=== PATIENT | male | born 1980 | race Caucasian/White ===

== ENCOUNTER 2020-10-31 22:45 | Emergency (ER) | payer MEDICAID, SELFPAY ==
--- NOTE | ~2020-10-31 | XR_ITS ---
EXAMINATION: RIGHT HAND 3 VIEWS CLINICAL INFORMATION: Pain following injury. COMPARISON: None. TECHNIQUE: PA, lateral, oblique views of the right hand were obtained. FINDINGS: There is an oblique fracture to the distal right third middle phalanx with associated soft tissue swelling. No additional acute fractures are identified. There is a likely old healed fracture to the distal metacarpal. XR/XR hand RT min 3V IMPRESSION: Distal right third middle phalanx fracture with associated soft tissue swelling.
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
[2020-10-31 22:55] VITALS: BP 147/75; PULSE 104; PULSE 114; RESP 16; TEMP 36.9; O2SAT 99; BMI 29.2
--- NOTE | 2020-10-31 23:10 | PC.NURSE ---
vs- spO2 100% RA, p 100
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
== END 2020-11-01 01:06 ==
PROVIDERS: Emergency Provider Internal Medicine
DX: S01.01XA Laceration without foreign body of scalp, initial encounter (principal); S62.91XA Unspecified fracture of right hand, initial encounter for closed fracture; G44.309 Post-traumatic headache, unspecified, not intractable; M54.2 Cervicalgia; M79.641 Pain in right hand; F10.920 Alcohol use, unspecified with intoxication, uncomplicated; Y04.2XXA Assault by strike against or bumped into by another person, initial encounter; Y93.9 Activity, unspecified; Y92.9 Unspecified place or not applicable; Y99.9 Unspecified external cause status; Z79.899 Other long term (current) drug therapy
CPT/HCPCS: 12002; 70450; 72125; 73130; 99283

== ENCOUNTER 2020-11-01 10:00 | Emergency (ER) | payer MEDICAID, SELFPAY ==
[2020-11-01 10:15] VITALS: BP 141/96; PULSE 84; RESP 16; TEMP 36.3; O2SAT 100; BMI 26.6
[2020-11-01 10:24] VITALS: BP 139/87; PULSE 80; O2SAT 99
--- NOTE | 2020-11-01 10:37 | PC.NURSE ---
PT REQUESTS TO GO TO [facility] RN EXPLAINED HE WOULD HAVE TO WAIT UNTIL HE WAS DISCHARGED, PT THEN REALIZED HE DID NOT GET HIS BELONGINGS BACK FROM [employer] DEPT BECAME INCREASINGLY UPSET SAID I AM GOING TO GET MY MONEY, SEAM CHECKER PABLITO AWARE, PT LEFT DEPT WEARING SOFT SPLINT APPLIED TO RUE BY EMS
--- NOTE | 2020-11-30 06:41 | ED.EXTPRO ---
HPI - Extremity Problem General Chief complaint: Extremity Injury, Upper Stated complaint: UNKNOWN Time Seen by Provider: 11/01/20 10:32 History of Present Illness HPI Narrative: Left the being seen Related Data Previous Rx's Medication Instructions Recorded doxycycline hyclate 100 mg PO DAILY #14 tab 11/01/20 ibuprofen 600 mg PO Q8H PRN #20 tab 11/01/20 Allergies Allergy/AdvReac Type Severity Reaction Status Date / Time Penicillins Allergy Severe Anaphylaxis Verified 10/31/20 23:08 [facility] Past Medical History Medical History Hepatitis C Social History Social History Advance Directives: Yes Advance Directives Information Provided: No Advance Directives on File: No Physical Exam Vital Signs: Vital Signs: Last Vital Signs Temp 97.4 F 11/01/20 10:15 Pulse 84 11/01/20 10:15 Resp 16 11/01/20 10:15 BP 141/96 H 11/01/20 10:15 Pulse Ox 100 11/01/20 10:15 Body Mass Index 26.6 Discharge Plan Discharge Patient Disposition: Left Without Being Seen Interventions: LWBS Worksheet Last Done: 11/01/20 10:43 Discharge Date/Time: 11/01/20 10:43
== END 2020-11-01 10:43 | disposition left against medical advice (07) ==
PROVIDERS: Emergency Provider Emergency Medicine Emergency Medical Services
DX: M25.512 Pain in left shoulder (principal); M25.522 Pain in left elbow
CPT/HCPCS: 99283

== ENCOUNTER 2020-11-01 10:46 | Emergency (ER) | payer MEDICAID, SELFPAY ==
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
[2020-11-01 10:51] VITALS: BP 146/95; PULSE 97; RESP 16; TEMP 36.8; O2SAT 98; BMI 27.3
[2020-11-01] MEDS: Ibuprofen 600 MG TABLET PO (11:11)
[2020-11-01] MEDS: Acetaminophen 325 MG TABLET 650 MG PO (11:11)
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
== END 2020-11-01 13:30 | disposition left against medical advice (07) ==
PROVIDERS: Emergency Provider Emergency Medicine Emergency Medical Services
DX: S62.632A Displaced fracture of distal phalanx of right middle finger, initial encounter for closed fracture (principal); L03.011 Cellulitis of right finger; M79.641 Pain in right hand; Y04.8XXA Assault by other bodily force, initial encounter; Y93.9 Activity, unspecified; Y92.410 Unspecified street and highway as the place of occurrence of the external cause; Y99.9 Unspecified external cause status; Z79.899 Other long term (current) drug therapy
CPT/HCPCS: 29130; 73060; 73090; 73110; 73130; 73140; 99283; 99284